=== PATIENT | female | born 1985 | race Caucasian/White ===

== ENCOUNTER 2018-06-09 14:42 | Emergency (ER) | payer MEDICAID, OTHER ==
[~2018-06-09] VITALS: Ht 157.5 cm; Wt 68.0 kg
[~2018-06-09 14:42] MED LIST: HYDR-519 PO; LEVO500T2 PO; PROT40 PO
[2018-06-09 14:46] VITALS: BP 120/79
[2018-06-09] MEDS ORDERED: IPRATROPIUM/ALBUTEROL 0.5-3(2.5)MG/3ML NEB HHN ONE (16:00)
[2018-06-09] MEDS ORDERED: FLUTICASONE PROPIONATE 50MCG/SPRAY BOTTLE BOTHNSTRLS SCH (21:00)
== END 2018-06-09 18:44 | disposition home or self-care (01) ==
LOC: ER 15:44
DX: J40 Bronchitis, not specified as acute or chronic (principal); M94.0 Chondrocostal junction syndrome [Tietze]; F17.210 Nicotine dependence, cigarettes, uncomplicated; Z71.6 Tobacco abuse counseling
CPT/HCPCS: 71045; 81025; 93005; 94640; 99284; 99406; J7620

== ENCOUNTER 2018-06-23 19:36 | Emergency (ER) | payer MEDICAID ==
[~2018-06-23] VITALS: Ht 157.5 cm; Wt 62.0 kg
[2018-06-23] MEDS ORDERED: IPRATROPIUM BROMIDE (0.02%) 0.5MG/2.5ML NEB HHN STA (20:04)
[2018-06-23] MEDS ORDERED: ALBUTEROL (0.083%) 2.5MG/3ML NEB HHN STA (20:04)
[2018-06-23] MEDS ORDERED: PREDNISONE 20MG TABLET PO STA (20:04)
[2018-06-23 21:41] LABS: BASOPHILS % 0.7 % (0.0-2.0); EOSINOPHILS % 2.5 % (0.0-5.0); HEMATOCRIT. 35.9 % (36.0-48.0); HEMOGLOBIN. 12.6 g/dL (12.0-16.0); LYMPHOCYTES % 43.1 % (20.0-50.0); MEAN CORPUSCULAR HEMOGLOBIN 31.8 pg (28.0-32.0); MEAN CORPUSCULAR VOLUME 90.5 fL (81.0-99.0); MONOCYTES % 6.5 % (2.0-8.0); NEUTROPHILS % 47.2 % (40.0-76.0); PLATELET 238 x1000/uL (130-400); RED BLOOD CELL COUNT 3.97 mill/uL (4.2-5.4)
[2018-06-23 21:47] LABS: CHLORIDE 105 mEq/L (98-107)
[2018-06-23 23:20] VITALS: BP 105/62
== END 2018-06-23 23:22 | disposition home or self-care (01) ==
LOC: ER 19:36
DX: J45.901 Unspecified asthma with (acute) exacerbation (principal); Z90.49 Acquired absence of other specified parts of digestive tract
CPT/HCPCS: 36415; 71045; 80053; 81025; 85025; 94640; 99285; J7512; J7611

== ENCOUNTER 2019-04-26 17:56 | Emergency (ER) | payer MEDICAID ==
[~2019-04-26] VITALS: Ht 157.5 cm; Wt 59.0 kg
[2019-04-26 20:26] VITALS: BP 108/78
== END 2019-04-26 20:30 | disposition home or self-care (01) ==
LOC: ER 18:10
DX: N61.0 Mastitis without abscess (principal); Z87.891 Personal history of nicotine dependence; Z90.49 Acquired absence of other specified parts of digestive tract; Z79.899 Other long term (current) drug therapy
CPT/HCPCS: 81025; 99283

== ENCOUNTER 2019-06-10 17:27 | Emergency (ER) | payer MEDICAID ==
[~2019-06-10] VITALS: Ht 157.5 cm; Wt 60.0 kg
[2019-06-10 18:15] VITALS: BP 124/80
[2019-06-11] MEDS: PENICILLIN G BENZATHINE 2,400,000 UNITS/4ML SYR IM ONE (00:53)
== END 2019-06-11 01:05 | disposition home or self-care (01) ==
LOC: ER 17:27
DX: A53.9 Syphilis, unspecified (principal); J02.9 Acute pharyngitis, unspecified; Z90.49 Acquired absence of other specified parts of digestive tract
CPT/HCPCS: 86592; 96372; 99283; J0561

== ENCOUNTER 2019-11-27 11:04 | Emergency (ER) | payer MEDICAID ==
[~2019-11-27] VITALS: Ht 157.5 cm; Wt 63.0 kg
[2019-11-27] MEDS ORDERED: SODIUM CHLORIDE 0.9% 1000ML BAG (SEPSIS BOLUS) IV ONE (12:00)
[2019-11-27 12:04] LABS: CLARITY URINE CLOUDY (CLEAR); COLOR URINE YELLOW (YELLOW); KETONES URINE NEGATIVE (NEGATIVE); LEUKOCYTE ESTERASE URINE NEGATIVE (NEGATIVE); NITRITE URINE NEGATIVE (NEGATIVE); OCCULT BLOOD URINE 2+ (NEGATIVE); PH URINE 5.5 (4.5-8.0); PROTEIN URINE NEGATIVE (NEGATIVE); SPECIFIC GRAVITY URINE 1.023 (1.005-1.030); UROBILINOGEN URINE 0.2 E.U./dL (0.2-1.0)
[2019-11-27 12:35] LABS: BASOPHILS % 0.6 % (0.0-2.0); EOSINOPHILS % 2.1 % (0.0-5.0); HEMATOCRIT. 40.5 % (36.0-48.0); HEMOGLOBIN. 14.3 g/dL (12.0-16.0); LYMPHOCYTES % 18.1 % (20.0-50.0); MEAN CORPUSCULAR HEMOGLOBIN 32.3 pg (28.0-32.0); MEAN CORPUSCULAR VOLUME 91.8 fL (81.0-99.0); MEAN PLATELET VOLUME 7.7 fl (7.4-10.4); NEUTROPHILS % 73.2 % (40.0-76.0); PLATELET 196 x1000/uL (130-400); RED BLOOD CELL COUNT 4.42 mill/uL (4.2-5.4); RED CELL DISTRIBUTION WIDTH 12.8 % (11.6-14.6)
[2019-11-27 12:43] LABS: CHLORIDE 109 mEq/L (98-107)
[2019-11-27 12:46] LABS: HCG SCREEN NEGATIVE
[2019-11-27] MEDS ORDERED: IBUPROFEN 400MG TABLET PO ONE (14:00)
[2019-11-27 15:09] VITALS: BP 110/62
== END 2019-11-27 15:15 | disposition home or self-care (01) ==
LOC: ER 11:04
DX: B34.9 Viral infection, unspecified (principal); Z90.49 Acquired absence of other specified parts of digestive tract
CPT/HCPCS: 36415; 71046; 80053; 81003; 81025; 83605; 84145; 84484; 84703; 85025; 87040; 87086; 87804; 93005; 96360; 99285; J7030

== ENCOUNTER 2020-01-27 23:27 | Emergency (ER) | payer MEDICAID ==
[~2020-01-27] VITALS: Ht 157.5 cm; Wt 61.3 kg
[2020-01-28] MEDS ORDERED: IBUPROFEN 600MG TABLET PO ONE (00:30)
[2020-01-28 00:37] VITALS: BP 110/70
[2020-01-28 00:55] LABS: CLARITY URINE CLEAR (CLEAR); COLOR URINE YELLOW (YELLOW); KETONES URINE NEGATIVE (NEGATIVE); LEUKOCYTE ESTERASE URINE 2+ (NEGATIVE); NITRITE URINE NEGATIVE (NEGATIVE); OCCULT BLOOD URINE 1+ (NEGATIVE); PH URINE 6.5 (4.5-8.0); PROTEIN URINE NEGATIVE (NEGATIVE); SPECIFIC GRAVITY URINE 1.017 (1.005-1.030)
== END 2020-01-28 01:56 | disposition home or self-care (01) ==
LOC: ER 23:27
DX: J40 Bronchitis, not specified as acute or chronic (principal); N39.0 Urinary tract infection, site not specified; Z90.49 Acquired absence of other specified parts of digestive tract; Z79.899 Other long term (current) drug therapy
CPT/HCPCS: 71045; 81003; 81025; 99284

== ENCOUNTER 2021-05-29 06:28 | Emergency (ER) | payer MEDICAID ==
[~2021-05-29] VITALS: Ht 157.5 cm; Wt 64.0 kg
[2021-05-29 08:20] LABS: BASOPHILS % 0.5 % (0.0-2.0); HEMATOCRIT. 44.1 % (36.0-48.0); HEMOGLOBIN. 15.4 g/dL (12.0-16.0); LYMPHOCYTES % 16.1 % (20.0-50.0); MEAN CORPUSCULAR HEMOGLOBIN 32.3 pg (28.0-32.0); MEAN CORPUSCULAR VOLUME 92.8 fL (81.0-99.0); MEAN PLATELET VOLUME 7.1 fl (7.4-10.4); MONOCYTES % 7.3 % (2.0-8.0); NEUTROPHILS % 76.1 % (40.0-76.0); PLATELET 281 x1000/uL (130-400); RED BLOOD CELL COUNT 4.75 mill/uL (4.2-5.4)
[2021-05-29 08:27] LABS: CHLORIDE 105 mEq/L (98-107)
[2021-05-29] MEDS ORDERED: SODIUM CHLORIDE 0.9% 1,000 ML IV ONE (08:45)
[2021-05-29 09:40] VITALS: BP 117/78
[2021-05-29 09:41] LABS: CLARITY URINE CLOUDY (CLEAR); COLOR URINE YELLOW (YELLOW); KETONES URINE NEGATIVE (NEGATIVE); LEUKOCYTE ESTERASE URINE 1+ (NEGATIVE); NITRITE URINE NEGATIVE (NEGATIVE); OCCULT BLOOD URINE 2+ (NEGATIVE); PH URINE 6.5 (4.5-8.0); PROTEIN URINE NEGATIVE (NEGATIVE); UROBILINOGEN URINE 0.2 E.U./dL (0.2-1.0)
== END 2021-05-29 11:15 | disposition left against medical advice (07) ==
LOC: ER 06:28
DX: R07.89 Other chest pain (principal); R00.0 Tachycardia, unspecified; F41.0 Panic disorder [episodic paroxysmal anxiety]; Z79.899 Other long term (current) drug therapy; J45.909 Unspecified asthma, uncomplicated; Z90.49 Acquired absence of other specified parts of digestive tract
CPT/HCPCS: 36415; 71045; 80053; 81003; 81025; 83880; 84484; 85025; 93005; 96360; 99285

== ENCOUNTER 2023-01-22 08:49 | Emergency (ER) | payer BC, MEDICAID ==
[~2023-01-22] VITALS: Ht 157.5 cm; Wt 66.0 kg
[2023-01-22] MEDS ORDERED: FAMOTIDINE 20MG/2ML VIAL IV STA (09:39)
[2023-01-22] MEDS ORDERED: ONDANSETRON HCL 4MG/2ML INJ IV STA (09:39)
[2023-01-22] MEDS ORDERED: SODIUM CHLORIDE 0.9% 1,000 ML IV ONE ×2 (09:45→10:45)
[2023-01-22 09:54] LABS: BASOPHILS % 0.4 % (0.0-2.0); EOSINOPHILS % 2.1 % (0.0-5.0); HEMATOCRIT. 36.8 % (36.0-48.0); HEMOGLOBIN. 12.9 g/dL (12.0-16.0); LYMPHOCYTES % 26.8 % (20.0-50.0); MEAN CORPUSCULAR HEMOGLOBIN 32.2 pg (28.0-32.0); MEAN CORPUSCULAR VOLUME 91.9 fL (81.0-99.0); MEAN PLATELET VOLUME 7.2 fl (7.4-10.4); MONOCYTES % 6.8 % (2.0-8.0); NEUTROPHILS % 63.9 % (40.0-76.0); PLATELET 226 x1000/uL (130-400); RED CELL DISTRIBUTION WIDTH 13.2 % (11.6-14.6)
[2023-01-22 09:59] LABS: HCG SCREEN NEGATIVE
[2023-01-22 10:02] LABS: CHLORIDE 109 mEq/L (98-107)
[2023-01-22 10:11] LABS: ETHANOL BLOOD 36 mg/dL
[2023-01-22] MEDS ORDERED: ONDANSETRON HCL 4MG/2ML INJ IV NR (12:48)
[2023-01-22] MEDS ORDERED: FAMOTIDINE 20MG/2ML VIAL IV NR (12:48)
[2023-01-22 12:54] LABS: CLARITY URINE CLEAR (CLEAR); COLOR URINE YELLOW (YELLOW); KETONES URINE NEGATIVE (NEGATIVE); LEUKOCYTE ESTERASE URINE 1+ (NEGATIVE); NITRITE URINE NEGATIVE (NEGATIVE); OCCULT BLOOD URINE TRACE (NEGATIVE); PH URINE 8.5 (4.5-8.0); PROTEIN URINE TRACE (NEGATIVE); SPECIFIC GRAVITY URINE 1.022 (1.005-1.030); UROBILINOGEN URINE 0.2 E.U./dL (0.2-1.0)
[2023-01-22 13:28] LABS: *AMPHETAMINES SCREEN URINE NEGATIVE (NEGATIVE); *BARBITURATES SCREEN URINE NEGATIVE (NEGATIVE); *BENZODIAZEPINES SCREEN URINE NEGATIVE (NEGATIVE); *COCAINE SCREEN URINE NEGATIVE (NEGATIVE); METHADONE URINE SCREEN NEGATIVE (NEGATIVE); OPIATES URINE SCREEN NEGATIVE (NEGATIVE); PHENCYCLIDINE URINE SCREEN NEGATIVE (NEGATIVE)
[2023-01-22 13:50] LABS: CANNABINOID URINE SCREEN PRESUMTIVE POSITIVE (NEGATIVE)
[2023-01-22] MEDS ORDERED: ONDA4TAB11 PO (15:43)
[2023-01-22 15:48] VITALS: BP 110/72
== END 2023-01-22 15:48 | disposition home or self-care (01) ==
LOC: ER 08:49
DX: F10.129 Alcohol abuse with intoxication, unspecified (principal); E86.0 Dehydration; R11.2 Nausea with vomiting, unspecified; F12.90 Cannabis use, unspecified, uncomplicated; Z90.49 Acquired absence of other specified parts of digestive tract; Z79.899 Other long term (current) drug therapy; Y90.1 Blood alcohol level of 20-39 mg/100 ml
CPT/HCPCS: 36415; 80053; 80305; 80320; 81003; 81025; 83690; 84703; 85025; 93005; 96361; 96374; 96375; 99284; J2405; J3490; J7030; Z7610; G0480

== ENCOUNTER 2024-04-21 07:58 | Emergency (ER) | payer BC, MEDICAID ==
[~2024-04-21] VITALS: Ht 157.5 cm; Wt 61.0 kg
[~2024-04-21 07:58] MED LIST changes: +ONDA4TAB11 PO
[2024-04-21 08:05] VITALS: O2SAT 98
[2024-04-21 08:31] LABS: CLARITY URINE TURBID (CLEAR); COLOR URINE YELLOW (YELLOW); GLUCOSE URINE NEGATIVE (NEGATIVE); KETONES URINE NEGATIVE (NEGATIVE); LEUKOCYTE ESTERASE URINE 3+ (NEGATIVE); NITRITE URINE NEGATIVE (NEGATIVE); OCCULT BLOOD URINE 2+ (NEGATIVE); PH URINE 6.5 (4.5-8.0); PROTEIN URINE 1+ (NEGATIVE); SPECIFIC GRAVITY URINE 1.022 (1.005-1.030); UROBILINOGEN URINE 0.2 E.U./dL (0.2-1.0)
[2024-04-21 08:36] LABS: HCG SCREEN NEGATIVE
[2024-04-21 08:38] LABS: BASOPHILS % 0.4 % (0.0-2.0); EOSINOPHILS % 1.1 % (0.0-5.0); HEMATOCRIT. 39.9 % (36.0-48.0); HEMOGLOBIN. 13.8 g/dL (12.0-16.0); LYMPHOCYTES % 48.5 % (20.0-50.0); MEAN CORPUSCULAR HEMOGLOBIN 32.1 pg (28.0-32.0); MEAN CORPUSCULAR HGB CONC 34.6 g/dL (31.0-37.0); MEAN CORPUSCULAR VOLUME 92.8 fL (81.0-99.0); MEAN PLATELET VOLUME 7.4 fl (7.4-10.4); MONOCYTES % 6.9 % (2.0-8.0); NEUTROPHILS % 43.1 % (40.0-76.0); PLATELET 262 x1000/uL (130-400); RED CELL DISTRIBUTION WIDTH 12.9 % (11.6-14.6); WHITE BLOOD COUNT 4.6 x1000/uL (4.5-11.0)
[2024-04-21 08:42] LABS: CHLORIDE 109 mEq/L (98-107); SODIUM 142 mEq/L (136-145)
[2024-04-21 08:43] LABS: CALCIUM 9.1 mg/dL (8.7-10.4); CARBON DIOXIDE 24 mEq/L (21-32)
[2024-04-21 08:48] LABS: CREATININE 0.5 mg/dL (0.6-1.0); GLUCOSE 130 mg/dL (70-105); UREA NITROGEN BLOOD 7 mg/dL (9-23)
[2024-04-21] MEDS: SODIUM CHLORIDE 0.9% 1,000 ML IV ONE (08:51)
[2024-04-21] MEDS: ONDANSETRON HCL 4MG/2ML INJ IV ONE (08:51)
[2024-04-21] MEDS: ONDANSETRON 4MG ODT PO ONE (08:51)
[2024-04-21 09:14] LABS: SQUAMOUS EPITHELIAL CELL URINE 3+ /lpf (RARE/1+)
[2024-04-21] MEDS ORDERED: ONDA4TAB11 PO (09:14)
[2024-04-21 09:16] LABS: BACTERIA URINE 3+; RBC URINE 0-2 /hpf (0-2)
[2024-04-21] MEDS ORDERED: CEPH500T MT (09:16)
[2024-04-21] MEDS: CEFTRIAXONE 1GM/50ML 50 ML IV ONE (09:32)
[2024-04-21 09:46] VITALS: BP 107/92; PULSE 71; RESP 20; TEMP 98.3
== END 2024-04-21 09:56 | disposition home or self-care (01) ==
LOC: ER 07:58
DX: K29.20 Alcoholic gastritis without bleeding (principal); F10.10 Alcohol abuse, uncomplicated; N39.0 Urinary tract infection, site not specified; J45.909 Unspecified asthma, uncomplicated; F12.10 Cannabis abuse, uncomplicated; Z90.49 Acquired absence of other specified parts of digestive tract; Z79.899 Other long term (current) drug therapy; Y90.6 Blood alcohol level of 120-199 mg/100 ml
CPT/HCPCS: 80048; 81003; 81025; 80320; 84703; 83690; 85025; 87086; 36415; 96361; 96365; 96375; 99284; Q0162; J0696; J2405; J7030; Z7610; G0480

== ENCOUNTER 2025-03-09 03:52 | Emergency (ER) | payer MEDICAID ==
[~2025-03-09] VITALS: Ht 157.5 cm; Wt 77.0 kg
[~2025-03-09 03:52] MED LIST changes: +CEPH500T MT; +ONDA-239 PO; -ONDA4TAB11 PO
[2025-03-09 03:56] VITALS: O2SAT 98
[2025-03-09] MEDS: ACETAMINOPHEN 325MG TABLET PO ONE (05:43)
[2025-03-09] MEDS: GUAIFENESIN 600MG ER TABLET PO SCH (05:43)
[2025-03-09] MEDS: KETOROLAC 30MG/ML VIAL IM ONE (05:44)
[2025-03-09 05:49] LABS: BASOPHILS % 0.3 % (0.0-2.0); EOSINOPHILS % 0.2 % (0.0-5.0); HEMATOCRIT. 38.2 % (36.0-48.0); HEMOGLOBIN. 13.3 g/dL (12.0-16.0); LYMPHOCYTES % 14.5 % (20.0-50.0); MEAN CORPUSCULAR HEMOGLOBIN 31.5 pg (28.0-32.0); MEAN CORPUSCULAR HGB CONC 34.8 g/dL (31.0-37.0); MEAN CORPUSCULAR VOLUME 90.4 fL (81.0-99.0); MEAN PLATELET VOLUME 7.4 fl (7.4-10.4); MONOCYTES % 5.9 % (2.0-8.0); NEUTROPHILS % 79.1 % (40.0-76.0); PLATELET 223 x1000/uL (130-400); RED BLOOD CELL COUNT 4.23 mill/uL (4.2-5.4); WHITE BLOOD COUNT 10.1 x1000/uL (4.5-11.0)
[2025-03-09 06:12] LABS: CARBON DIOXIDE 26 mEq/L (21-32); CHLORIDE 103 mEq/L (98-107); POTASSIUM 3.8 mEq/L (3.5-5.1); SODIUM 140 mEq/L (136-145)
[2025-03-09 06:13] LABS: CALCIUM 9.4 mg/dL (8.7-10.4)
[2025-03-09 06:17] LABS: CREATININE 0.7 mg/dL (0.6-1.0)
[2025-03-09 06:18] LABS: ETHANOL BLOOD < 10 mg/dL (<10); GLUCOSE 116 mg/dL (70-105); UREA NITROGEN BLOOD 10 mg/dL (9-23)
[2025-03-09 06:19] LABS: ALANINE AMINOTRANSFERASE 27 IU/L (10-49); ALBUMIN 4.8 g/dL (3.2-4.8); ASPARTATE AMINOTRANSFERASE 20 IU/L (<34)
[2025-03-09 06:20] LABS: BILIRUBIN TOTAL 0.5 mg/dL (0.1-1.0); PROTEIN TOTAL 7.5 g/dL (6.0-8.3)
[2025-03-09] MEDS: DIPHENHYDRAMINE 25MG CAPSULE PO ONE (06:25)
[2025-03-09] MEDS: METOCLOPRAMIDE HCL 10MG TABLET PO ONE (06:25)
[2025-03-09 06:30] VITALS: TEMP 36.6
[2025-03-09] MEDS: DIPHENHYDRAMINE 25MG CAPSULE PO NR (06:30)
[2025-03-09 06:44] LABS: HCG SCREEN NEGATIVE
[2025-03-09] MEDS ORDERED: PSEU120T56 MT (07:23)
[2025-03-09] MEDS ORDERED: IBUP-2029 MT (07:23)
[2025-03-09 08:56] VITALS: BP 102/64; PULSE 80; RESP 14; O2SAT 100
== END 2025-03-09 08:57 | disposition home or self-care (01) ==
LOC: ER 03:52
DX: U07.1 COVID-19 (principal); J01.90 Acute sinusitis, unspecified; Z90.49 Acquired absence of other specified parts of digestive tract; Z79.899 Other long term (current) drug therapy; F12.90 Cannabis use, unspecified, uncomplicated
CPT/HCPCS: 80053; 81025; 80320; 84703; 85025; 36415; 70450; 70486; 96372; 99285; 87426; Q0163; J8597; J1885; G0480